=== PATIENT | male | born 1950 | race Caucasian/White ===

== ENCOUNTER 2020-07-10 11:51 | Outpatient (CLI) | payer MEDICARE, SELFPAY ==
--- NOTE | ~2020-07-10 | XR_ITS ---
XR chest 2V DATE: 07/10/2020 12:16 INDICATION: Shortness of breath for 3 months. Cough. History of emphysema. Partial left lung removal. TECHNIQUE: 2 views COMPARISON: 08/21/2013 two-view chest FINDINGS: There are surgical clips overlying the left upper chest and resection of the left sixth rib , consistent with history of left partial lung removal. There is an approximately 6 cm mass in the left upper lung field, likely carcinoma. Left apical cappi ng. The right lung is clear. No pleural effusion or pulmonary vascular congestion or pneumothorax is evid ent. Normal heart size. Diffuse osteopenia. IMPRESSION: Approximately 6 cm mass of the left upper lung, likely due to lung carcinoma Status post partial left lung resection Dr. Abarca telephoned the report to on 07/10/2020 at 1225 hours. Reviewed, dictated and finalized at location B.
== END 2020-07-10 11:52 | disposition home or self-care (01) ==
LOC: CHSIMG 11:56
PROVIDERS: PCP Physician Assistant; Visit Provider Physician Assistant
DX: J43.9 Emphysema, unspecified (principal); I10 Essential (primary) hypertension
CPT/HCPCS: 71046

== ENCOUNTER 2020-07-13 09:09 | Outpatient (CLI) | payer MEDICARE, SELFPAY ==
--- NOTE | ~2020-07-13 | CT_ITS ---
EXAMINATION: CT chest w con DATE: 07/13/2020 10:00 INDICATION: Shortness of breath, history of left partial pneumonectomy, lung mass on recent chest rad iograph TECHNIQUE: Transaxial computed tomographic images of the chest were obtained after the administration of 75 cc of Omnipaque 350 intravenous contrast. The dose-length product (DLP) was 360.69 mGy-cm. Ite rative reconstruction was used. COMPARISON: None FINDINGS: There is a 10.6 x 7.8 cm paramediastinal mass of the left upper lobe which infiltrates into the prevascular space and left upper mediastinum. A portion of the mass abuts, and possibly invades, the upper esophagus. There is a 2.6 x 1.1 cm left supraclavicular lymph node. There is a 3 mm nodule of the right middle lobe on image 82. There are surgical changes of prior left partial pneumonectomy . No pleural effusion or pneumothorax is identified. The heart size is normal. There are bilateral th yroid nodules which measure up to 1.9 cm on the left. There is mild thoracic spondylosis. The gallbla dder is surgically absent. There is a 2.8 cm mass of the right adrenal gland containing macroscopic f at. A 2 cm cyst is present in the upper pole of the left kidney. IMPRESSION: 1. Left upper lobe mass, consistent with primary bronchogenic carcinoma. 2. Possible invasion of the upper esophagus by the mass. 3. Pathologically enlarged left supraclavicular lymph node. 4. Right adrenal mass containing macroscopic fat. Finding may reflect a myelolipoma however would rec ommend comparison with any prior imaging as metastatic disease is a possibility. Reviewed, dictated and finalized at location A. IMPRESSION: 1. Left upper lobe mass, consistent with primary bronchogenic carcinoma. 2. Possible invasion of the upper esophagus by the mass. 3. Pathologically enlarged left supraclavicular lymph node. 4. Right adrenal mass containing macroscopic fat. Finding may reflect a myeloli massiel however would recommend comparison with any prior imaging as metastatic di santy is a possibility.
[2020-07-13 09:32] LABS: Estimated Glomerular Filt Rate > 60
== END 2020-07-13 09:10 | disposition home or self-care (01) ==
LOC: CHSIMG 09:11
PROVIDERS: PCP Physician Assistant; Visit Provider Physician Assistant
DX: R91.8 Other nonspecific abnormal finding of lung field (principal)
CPT/HCPCS: 71260; Q9965

== ENCOUNTER 2020-07-27 10:19 | Outpatient (CLI) | payer MEDICARE, SELFPAY ==
[2020-07-27 10:30] LABS: Hematocrit 45.1 % (37.0-46.0); Hemoglobin 14.8 g/dL (12.4-15.3); Mean Corpuscular HGB Conc 32.8 g/dL (32.0-36.0); Mean Corpuscular Hemoglobin 30.5 pg (27.0-31.0); Mean Platelet Volume 9.2 fl (8.7-11.0); Platelet Count Result 288 K/mm3 (150-420); Red Blood Count 4.85 M/mm3 (4.70-6.10); Red Cell Distribution Width 12.9 % (11.6-14.4); White Blood Count 9.4 K/mm3 (4.8-10.8)
[2020-07-27 10:44] LABS: Partial Thromboplastin Time 28.2 SEC (22.3-31.6); Prothrombin Time 10.4 Seconds (9.64-11.0)
== END 2020-07-27 10:20 | disposition home or self-care (01) ==
LOC: CHSLAB 10:22
PROVIDERS: PCP Physician Assistant
DX: R91.8 Other nonspecific abnormal finding of lung field (principal); Z79.01 Long term (current) use of anticoagulants
CPT/HCPCS: 36415; 85027; 85610; 85730

== ENCOUNTER 2023-01-07 03:41 | Inpatient (IN) | payer MEDICARE, SELFPAY ==
[2023-01-07] VITALS (32 sets, daily range): BP systolic 117–166; BP diastolic 75–95; PULSE 91–127; RESP 15–38; TEMP 36.4–37.2; O2SAT 89–98; BMI 26.8
--- NOTE | ~2023-01-07 | CT_ITS ---
EXAMINATION: CTA chest PE protocol DATE: 01/07/2023 05:10 INDICATION: Shortness of breath. TECHNIQUE: Computed tomography angiography (CTA) of the chest was performed with 100 mL Omnipaque-350 intravenous contrast timed to evaluate the pulmonary arteries. Coronal maximum intensity projection 3D-reconstructions were created by the technologist. Automated exposure control and iterative reconst ruction technique were employed. The dose-length product was 578.57 mGy-cm. COMPARISON: Chest CT 07/13/2020 FINDINGS: There is mild emphysema. There is a 5 mm nodule in right lower lobe. There are changes of l eft upper lobectomy. There are airspace opacities with volume loss in left upper lung zone. There is elevation of left hemidiaphragm. There are tree-in-bud opacities, interstitial opacities, and subpleu ral bands in left lung with a lower lung predominance. There is a small left pleural effusion. The he art size is normal. There are coronary artery calcifications. There is a small pericardial effusion. There is no pulmonary embolus. There are changes of cholecystectomy. There are 6 mm and 7 mm hyperenh ancing masses in right hepatic lobe. There is a 3.0 cm mass in right adrenal gland containing fat, co nsistent with a myelolipoma. There is a 2.2 cm cyst in left kidney. There are nodules in the thyroid measuring up to 2.3 cm, stable from 07/13/2020. There are bridging endplate osteophytes at multiple le vels in the spine, consistent with diffuse idiopathic skeletal hyperostosis (DISH). IMPRESSION: 1. No pulmonary embolus. 2. Airspace opacities with volume loss in left upper lung zone, consistent with malignancy and radiat ion fibrosis. 3. Left upper lobectomy. 4. Mild pneumonia in left lung. 5. 5 mm right lower lobe pulmonary nodule, new from 07/13/2020, which may be infection or less likely metastatic disease. 6. Small left pleural effusion. 7. Mild emphysema. 8. Small pericardial effusion. 9. Two hyperenhancing liver masses measuring up to 7 mm, probably benign lesions such as hemangiomas or focal nodular hyperplasia. Reviewed, dictated and finalized at location A. IMPRESSION: 1. No pulmonary embolus. 2. Airspace opacities with volume loss in left upper lung zone, consistent with malignancy and radiation fibrosis. 3. Left upper lobectomy. 4. Mild pneumonia in left lung. 5. 5 mm right lower lobe pulmonary nodule, new from 07/13/2020, which may be inf ection or less likely metastatic disease. 6. Small left pleural effusion. 7. Mild emphysema. 8. Small pericardial effusion. 9. Two hyperenhancing liver masses measuring up to 7 mm, probably benign lesion s such as hemangiomas or focal nodular hyperplasia.
--- NOTE | ~2023-01-07 | XR_ITS ---
EXAMINATION: XR chest 1V portable DATE: 01/07/2023 04:07 INDICATION: Shortness of breath. TECHNIQUE: A single frontal view of the chest was obtained on 2 radiographs. COMPARISON: Chest 2 views 07/10/2020, chest CT 01/07/2023 FINDINGS: There is volume loss of left hemithorax. There are surgical clips at left hilum from left u pper lobectomy. There are airspace opacities in left upper lung zone. There is elevation of left ni diaphragm. No pleural effusion or pneumothorax. The heart size is normal. IMPRESSION: 1. Airspace opacities in left upper lung zone, consistent with malignancy and changes of radiation th erapy. 2. Left upper lobectomy. Reviewed, dictated and finalized at location A. IMPRESSION: 1. Airspace opacities in left upper lung zone, consistent with malignancy and c hanges of radiation therapy. 2. Left upper lobectomy.
--- NOTE | 2023-01-07 03:55 | ECG_ITS ---
Measurements Intervals [place] Rate: 111 P: 93 [place]: 188 QRS: 25 QRSD: 81 T: 73 QT: 294 QTc: 400 Interpretive Statements SINUS TACHYCARDIA LOW QRS VOLTAGE IN PRECORDIAL LEADS NONSPECIFIC T-WAVE ABNORMALITY ABNORMAL RHYTHM ECG NO PREVIOUS ECG AVAILABLE FOR COMPARISON Electronically Signed On 01-07-2023 10:22:02 CDT by Chad Sandra M.D.
[2023-01-07] MEDS: methylPREDNISolone SOD SUCC 125 MG VIAL IV PUSH (04:07)
[2023-01-07 04:20] LABS: Hematocrit 42.4 % (37.0-46.0); Hemoglobin 14.1 g/dL (12.4-15.3); Mean Corpuscular HGB Conc 33.3 g/dL (32.0-36.0); Mean Corpuscular Hemoglobin 30.7 pg (27.0-31.0); Mean Corpuscular Volume 92.4 fL (78.0-102.0); Mean Platelet Volume 9.2 fl (8.7-11.0); Platelet Count Result 237 K/mm3 (150-420); Red Blood Count 4.59 M/mm3 (4.70-6.10); Red Cell Distribution Width 13.6 % (11.6-14.4); White Blood Count 7.7 K/mm3 (4.8-10.8)
[2023-01-07] MEDS: LEVALBUTEROL NEB 1.25 MG/3 ML INHALATION (04:22)
[2023-01-07] MEDS: IPRATROPIUM BR 0.02% INH SOLN 0.5 MG/2.5 ML VIAL INHALATION (04:22)
[2023-01-07 04:35] LABS: Base Excess ABG 2.3 mmol/L (0-2); HCO3 ABG 28.3 mmol/L (23-29); Oxygen Saturation ABG 93.4 % (95-97); Oxyhemoglobin 92.4 % (94-100); PCO2 ABG 49.2 mmHg (35-45); PO2 ABG 68.3 mmHg (75-85); Total Hemoglobin 14.6 g/dL (12.0-18.0); pH ABG 7.38 (7.35-7.45)
[2023-01-07 04:39] LABS: D Dimer 0.74 mg/L (0.19-0.50)
[2023-01-07 04:39] LABS: Device NASAL CANNULA; Modified Allen's Test Pass; Site Drawn RIGHT RADIAL
[2023-01-07 04:42] LABS: Anion Gap 6 mmol/L (8-16); Blood Urea Nitrogen 10 mg/dL (7-18); Calcium 9.3 mg/dL (8.5-10.1); Carbon Dioxide 32 mmol/L (21-32); Chloride 108 mmol/L (98-108); Estimated CRCL calculation 92 ml/min; Estimated Glomerular Filt Rate > 60; Glucose 120 mg/dL (70-99); NT Pro B Type Natriuretic Pept 147 pg/mL (0-125); Osmolality Calculated 302 mOsm/kg (285-295); Potassium 3.7 mmol/L (3.5-5.1); Sodium 146 mmol/L (136-145); Troponin I 19.5 ng/L (0.00-60.4)
[2023-01-07 04:45] LABS: Band Neutrophils Percent 0 % (0-6); Basophils Percent Manual 0 % (0-1); Eosinophils Percent Manual 0 % (1-6); Lymphocytes Absolute Manual 0.77 K/mm3 (1.1-4.5); Lymphocytes Percent Manual 10 % (18-44); Monocytes Absolute Manual 1.77 K/mm3 (0.1-0.90); Monocytes Percent Manual 23 % (3-9); Neutrophils Absolute Manual 5.15 K/mm3 (1.3-6.7); Neutrophils Percent Manual 67 % (46-73); Platelet Estimate Adequate (Adequate)
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
[2023-01-07] MEDS: IPRATROPIUM 0.5 MG/ALBUTEROL SULFATE 2.5 MG AMPUL.NEB 3 ML INHALATION ×4 (09:03→23:30)
[2023-01-07] MEDS: ACETAMINOPHEN 500 MG TABLET 1000 MG PO (09:26)
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
--- NOTE | 2023-01-07 11:04 | ADMGEN ---
This patient, Garcia Irwin, was admitted to 2nd Floor Room 209-1. Patient/family oriented to hospital policies and general routines including ID bracelet, bed and alarms, visiting hours, pain management, procedures, bathroom and other care routines, personal items, smoking policy, room service/diet, and visiting hours. Information on how to activate the Rapid Response Team has been discussed. Patient/Family are encouraged to report perceived risks to care and to ask questions if they do not understand what they are told or what they should do.
[2023-01-07] MEDS: IRBESARTAN 150 MG TABLET PO (15:02)
[2023-01-07] MEDS: amLODIPine BESYLATE 5 MG TABLET PO (15:03)
[2023-01-07] MEDS: PANTOPRAZOLE 40 MG TABLET PO (15:03)
[2023-01-07] MEDS: EZETIMIBE 10 MG TABLET PO (15:03)
[2023-01-07] MEDS: ENOXAPARIN 40 MG/0.4 ML SYRINGE SUB-Q (15:03)
[2023-01-07] MEDS: ACETAMINOPHEN 325 MG TABLET 650 MG PO (16:22)
[2023-01-07] MEDS: ARFORMOTEROL TARTRATE 15 MCG/2 ML NEB INHALATION (18:41)
[2023-01-07] MEDS: BUDESONIDE RESPULE NEB 0.5 MG/2 ML AMP INHALATION (18:41)
[2023-01-07] MEDS: traMADol HCL (*CRX) 50 MG TABLET 100 MG PO (21:07)
[2023-01-08] VITALS (18 sets, daily range): BP systolic 111–138; BP diastolic 60–78; PULSE 83–125; RESP 16–95; TEMP 36.8–38.1; O2SAT 88–95
[2023-01-08 05:16] LABS: Basophils Absolute Auto 0.02 K/mm3 (0.00-0.10); Basophils Percent Auto 0.2 % (0.0-1.0); Hematocrit 37.6 % (37.0-46.0); Hemoglobin 12.4 g/dL (12.4-15.3); Immature Granulocyte Absolute 0.09 K/mm3 (0.00-0.00); Immature Granulocyte Percent A 0.7 % (0.0-0.0); Lymphocytes Absolute Auto 0.46 K/mm3 (1.10-4.50); Lymphocytes Percent Auto 3.5 % (18.0-42.0); Mean Corpuscular Hemoglobin 30.2 pg (27.0-31.0); Mean Corpuscular Volume 91.7 fL (78.0-102.0); Mean Platelet Volume 9.3 fl (8.7-11.0); Monocytes Absolute Auto 1.83 K/mm3 (0.10-0.90); Monocytes Percent Auto 13.7 % (2.0-11.0); Neutrophils Absolute Auto 10.9 K/mm3 (1.7-7.2); Neutrophils Percent Auto 81.9 % (50.0-70.0); Platelet Count Result 238 K/mm3 (150-420); Red Cell Distribution Width 13.8 % (11.6-14.4); White Blood Count 13.3 K/mm3 (4.8-10.8)
[2023-01-08 05:25] LABS: Anion Gap 5 mmol/L (8-16); Blood Urea Nitrogen 13 mg/dL (7-18); Carbon Dioxide 34 mmol/L (21-32); Chloride 107 mmol/L (98-108); Estimated CRCL calculation 91 ml/min; Estimated Glomerular Filt Rate > 60; Glucose 110 mg/dL (70-99); Osmolality Calculated 303 mOsm/kg (285-295); Potassium 3.7 mmol/L (3.5-5.1); Sodium 146 mmol/L (136-145)
[2023-01-08] MEDS: BUDESONIDE RESPULE NEB 0.5 MG/2 ML AMP INHALATION ×2 (06:40→18:42)
[2023-01-08] MEDS: IPRATROPIUM 0.5 MG/ALBUTEROL SULFATE 2.5 MG AMPUL.NEB 3 ML INHALATION ×4 (06:40→23:42)
[2023-01-08] MEDS: ARFORMOTEROL TARTRATE 15 MCG/2 ML NEB INHALATION (06:41)
[2023-01-08] MEDS: ENOXAPARIN 40 MG/0.4 ML SYRINGE SUB-Q (08:35)
[2023-01-08] MEDS: AZITHROMYCIN 250 MG TABLET 500 MG PO (08:37)
[2023-01-08] MEDS: EZETIMIBE 10 MG TABLET PO (08:37)
[2023-01-08] MEDS: PANTOPRAZOLE 40 MG TABLET PO (08:37)
[2023-01-08] MEDS: amLODIPine BESYLATE 5 MG TABLET PO (08:38)
[2023-01-08] MEDS: IRBESARTAN 150 MG TABLET PO (08:38)
[2023-01-08] MEDS: cefTRIAXone 2 GM/NS 100 ML 2 GM/100 ML BAG IVPB (08:43)
--- NOTE | 2023-01-08 08:50 | WPDPN ---
Progress Note: A&P Assessment and Plan (1) Community acquired pneumonia: Qualifiers: Laterality: left Lung location: upper lobe of lung Qualified Code(s): J18.9 - Pneumonia, unspecified organism Code(s): J18.9 - Pneumonia, unspecified organism Status: Acute Assessment and Plan: Rocephin 2 g IV Q 24 azithromycin 500 mg p.o. Q 24 x5 days DuoNebs q.6 hours continue patient's home oxygen at 4 L per nasal cannula and titrate as needed Monitor vital signs Monitor lab work Monitor clinical response elevated wbc's will trend possibly secondary to steroid will keep for now additional day to monitor. (2) Acute exacerbation of chronic obstructive airways disease: Code(s): J44.1 - Chronic obstructive pulmonary disease with (acute) exacerbation Status: Acute Assessment and Plan: DuoNebs q.6 hours Continue Symbicort Monitor pulse ox Monitor clinical response (3) Hypercholesterolemia: Code(s): E78.00 - Pure hypercholesterolemia, unspecified Status: Acute Assessment and Plan: continue Zetia (4) HTN (hypertension): Code(s): I10 - Essential (primary) hypertension Status: Acute Assessment and Plan: monitor vital signs Continue Cardizem (5) GERD (gastroesophageal reflux disease): Code(s): K21.9 - Gastro-esophageal reflux disease without esophagitis Status: Acute Assessment and Plan: continue omeprazole Subjective Date/time seen: 01/08/23 08:50 Interval history: patient does not appear to be in any distress . Patient notes that his pain is controlled he was able to tolerate his meals and slept well overnight. Will keep patient for an additional day to ensure that his white count trend hours to indicate that his pneumonia is improving. The patient denies CP, palpitation, extremity numbness, lightheadedness, dizziness, constipation, diarrhea, chills, or fever. Review of Systems Review of Systems: All systems reviewed & are unremarkable except as noted in HPI and below Exam Narrative: GENERAL: This is a well-nourished, well-developed patient, in no apparent distress. HEAD: normocephalic, atraumatic. EYES: PERRL. Sclera clear/white. Vision is grossly intact. EARS: External ears normal, auditory canals clear and without drainage, TMs normal without perforation. Hearing grossly intact. NOSE: External nose normal with no obvious nasal discharge, nares without redness, no rhinorrhea. THROAT: Mucous membranes moist, posterior pharynx clear. NECK: Neck supple, non-tender without lymphadenopathy, masses or thyromegaly. CARDIOVASCULAR: Regular rate and rhythm without murmurs, gallops, or rubs. RESPIRATORY: Diminished throughout GASTROINTESTINAL: Abdomen soft, non-tender, nondistended. Bowel sounds are active. No hepato-splenomegaly, or palpable masses. No guarding. SKIN: warm, intact with no suspicious lesions or rash, good texture and turgor. NEURO: awake, alert, and oriented to person, place and time. There were no obvious focal neurologic abnormalities. EXTREMITIES: Normal range of motion. No edema. No calf tenderness. Objective Data Vital Signs Vital Signs: Vital Signs - 24 hr 01/07/23 09:04 01/07/23 09:14 01/07/23 09:38 Temperature 37.2 C Pulse Rate 111 H 105 H 108 H Respiratory Rate 24 H 24 H 26 H Blood Pressure 140/90 Pulse Oximetry 93 94 Oxygen Delivery Nasal Cannula Oxygen Flow Rate 5 4.5 01/07/23 10:40 01/07/23 12:54 01/07/23 12:59 Temperature 36.6 C Pulse Rate 104 H 103 H 107 H Respiratory Rate 20 24 H 24 H Blood Pressure 150/88 H Pulse Oximetry 96 93 Oxygen Delivery Oxygen Flow Rate 4 4.5 01/07/23 12:00 01/07/23 12:56 01/07/23 16:00 Temperature 36.8 C Pulse Rate 100 105 H Respiratory Rate 17 Blood Pressure 133/89 Pulse Oximetry 96 94 Oxygen Delivery Nasal Cannula Nasal Cannula Oxygen Flow Rate 4 4 01/07/23 16:00 01/07/23 18:42 01/07/23 20:00
[2023-01-08] MEDS: TAMSULOSIN HCL 0.4 MG CAPSULE PO (09:56)
[2023-01-08] MEDS: ACETAMINOPHEN 325 MG TABLET 650 MG PO ×2 (09:58→16:56)
[2023-01-08] MEDS: methylPREDNISolone SOD SUCC 40 MG VIAL IV PUSH (17:03)
[2023-01-08] MEDS: traZODone HCL 50 MG TABLET PO (20:39)
[2023-01-08] MEDS: traMADol HCL (*CRX) 50 MG TABLET 100 MG PO (20:39)
[2023-01-09] VITALS (9 sets, daily range): BP systolic 101–126; BP diastolic 64–72; PULSE 80–114; RESP 14–20; TEMP 36.4–37; O2SAT 90–96
[2023-01-09 05:02] LABS: Hematocrit 38.4 % (37.0-46.0); Hemoglobin 12.5 g/dL (12.4-15.3); Immature Granulocyte Absolute 0.04 K/mm3 (0.00-0.00); Immature Granulocyte Percent A 0.4 % (0.0-0.0); Lymphocytes Percent Auto 3.3 % (18.0-42.0); Mean Corpuscular HGB Conc 32.6 g/dL (32.0-36.0); Mean Corpuscular Volume 92.1 fL (78.0-102.0); Mean Platelet Volume 9.1 fl (8.7-11.0); Monocytes Percent Auto 5.6 % (2.0-11.0); Neutrophils Absolute Auto 8.1 K/mm3 (1.7-7.2); Neutrophils Percent Auto 90.7 % (50.0-70.0); Platelet Count Result 222 K/mm3 (150-420); Red Blood Count 4.17 M/mm3 (4.70-6.10); Red Cell Distribution Width 13.7 % (11.6-14.4)
[2023-01-09] MEDS: BUDESONIDE RESPULE NEB 0.5 MG/2 ML AMP INHALATION (05:08)
[2023-01-09] MEDS: IPRATROPIUM 0.5 MG/ALBUTEROL SULFATE 2.5 MG AMPUL.NEB 3 ML INHALATION ×2 (05:09→12:06)
[2023-01-09 05:13] LABS: Anion Gap 5 mmol/L (8-16); Blood Urea Nitrogen 15 mg/dL (7-18); Calcium 9.1 mg/dL (8.5-10.1); Carbon Dioxide 34 mmol/L (21-32); Chloride 105 mmol/L (98-108); Estimated CRCL calculation 94 ml/min; Estimated Glomerular Filt Rate > 60; Glucose 142 mg/dL (70-99); Osmolality Calculated 300 mOsm/kg (285-295); Potassium 4.1 mmol/L (3.5-5.1); Sodium 144 mmol/L (136-145)
[2023-01-09] MEDS: cefTRIAXone 2 GM/NS 100 ML 2 GM/100 ML BAG IVPB (09:03)
[2023-01-09] MEDS: AZITHROMYCIN 250 MG TABLET 500 MG PO (09:12)
[2023-01-09] MEDS: methylPREDNISolone SOD SUCC 40 MG VIAL IV PUSH (09:12)
[2023-01-09] MEDS: amLODIPine BESYLATE 5 MG TABLET PO (09:12)
[2023-01-09] MEDS: PANTOPRAZOLE 40 MG TABLET PO (09:12)
[2023-01-09] MEDS: EZETIMIBE 10 MG TABLET PO (09:13)
[2023-01-09] MEDS: IRBESARTAN 150 MG TABLET PO (09:13)
[2023-01-09] MEDS: TAMSULOSIN HCL 0.4 MG CAPSULE PO (09:14)
[2023-01-09] MEDS: ENOXAPARIN 40 MG/0.4 ML SYRINGE SUB-Q (09:14)
--- NOTE | 2023-01-09 12:35 | PM.DS ---
DS: Admitting Diagnosis Discharge Date 01/09/2023 Admitting Diagnosis Pneumonia Exacerbation of COPD DS: Discharge Diagnosis Discharge Diagnosis (1) Community acquired pneumonia: Qualifiers: Laterality: left Lung location: upper lobe of lung Qualified Code(s): J18.9 - Pneumonia, unspecified organism Code(s): J18.9 - Pneumonia, unspecified organism Status: Acute Assessment and Plan: patient received 2 days of IV Rocephin 2 g and azithromycin 500 mg p.o.. Will discharge patient on Augmentin 875 b.i.d. x8 days to finish the course continue patient's home oxygen at 4 L per nasal cannula and titrate as needed Monitor vital signs Monitor lab work Monitor clinical response (2) Acute exacerbation of chronic obstructive airways disease: Code(s): J44.1 - Chronic obstructive pulmonary disease with (acute) exacerbation Status: Acute Assessment and Plan: Continue Symbicort Monitor pulse ox Discharged with prednisone taper (3) Hypercholesterolemia: Code(s): E78.00 - Pure hypercholesterolemia, unspecified Status: Acute Assessment and Plan: continue Zetia (4) HTN (hypertension): Code(s): I10 - Essential (primary) hypertension Status: Acute Assessment and Plan: monitor vital signs continue amlodipine Continue irbesartan (5) GERD (gastroesophageal reflux disease): Code(s): K21.9 - Gastro-esophageal reflux disease without esophagitis Status: Acute Assessment and Plan: continue omeprazole DS: Summary Hospital Course Reason for hospitalization: pneumonia Exacerbation of COPD Hospital Course: admitted on 01/07/2023 with pneumonia and exacerbation of COPD. patient has continued to improve and he denies any shortness breath and we minimal coughing. States he is back at his baseline and is ready to go home. Patient ambulated in the room with nursing staff with no drop in oxygen saturation or increase in heart rate. Status at Discharge Cognitive/behavioral status at discharge: Patient is alert and oriented x4 and appears in no acute distress. Pleasant affect noted. Functional status at discharge: independent ambulation Overall status at discharge: patient is back to baseline Time Spent with Patient Time attestation: Total time spent providing and/or coordinating discharge services: Less than 30 minutes Exam Narrative: Patient is resting in low Herzog's position with friend at bedside. Alert and oriented x4. Appears in no acute distress. patient states he is feeling like his back at his baseline and is ready to go. Has no concerns for returning. States his friend is going to stay with him for the next several days to make sure he does not have any issues. Const: General: comfortable and no acute distress HENMT: Face/Nose/Sinus: Normal nares present Mouth: Yes moist mucous membranes Eyes: General: appearance normal, both eyes and all related structures Neck: Neck: supple and no JVD Resp: Effort & Inspection: normal respiratory effort Auscultation: rhonchi left upper and left lower Other: Patient appears in no acute respiratory distress. Able to speak in complete sentences without difficulty. No use of accessory muscles appreciated. Lung sounds are clear and equal bilaterally. Cardio: Rate: regular rate Rhythm: regular rhythm Other: S1-S2 audible without any murmur, rub, gallop appreciated GI: Other: abdomen soft, nondistended, nontender to palpation with bowel sounds present x4 quadrants : General: Yes bladder normal to palpation Skin: General skin exam: normal color and no rashes or lesions noted Neuro: Speech: normal speech Motor exam (neuro): Normal motor muscle tone present throughout Sensory Exam: normal sensation Extrem: General: normal to inspection Other: bilateral pedal and posterior tibial pulses palpated and equal without any edema noted Psych: Mental Status:
--- NOTE | 2023-01-09 14:16 | PC.NURSE ---
Pt discharged to self care. IV's removed and dressings applied. Medication instruction given . medications purpose, SE, times and dosages. Pt verbalized understanding. Pt's friend will take him home and help him get his O2 set up. Follow up MD appointment.
--- NOTE | 2023-01-10 16:08 | PC.NURSE ---
Discharge call back --- Patient states he is doing fine and that his discharge instructions were explained to him.
--- NOTE | 2023-01-10 16:13 | PC.NURSE ---
Discharge call back--- Patient states nurse did good job at explainig discharge instructions and patient has no concerns.
== END 2023-01-09 13:40 | disposition home or self-care (01) | DRG 190 ==
LOC: CHSED 08:38 → CHS2ND 01-08 15:51
PROVIDERS: Family Medicine; Nurse Practitioner Family; Admitting Provider Internal Medicine; Emergency Provider Emergency Medicine; PCP Physician Assistant; Visit Provider Internal Medicine
DX: J44.0 Chronic obstructive pulmonary disease with (acute) lower respiratory infection; J18.9 Pneumonia, unspecified organism; J44.1 Chronic obstructive pulmonary disease with (acute) exacerbation; I10 Essential (primary) hypertension; E78.00 Pure hypercholesterolemia, unspecified; K21.9 Gastro-esophageal reflux disease without esophagitis; Z99.81 Dependence on supplemental oxygen; Z85.118 Personal history of other malignant neoplasm of bronchus and lung; Z90.2 Acquired absence of lung [part of]
CPT/HCPCS: 36415; 36600; 71045; 71275; 80048; 82805; 83880; 84484; 85025; 85380; 93005; 94640; 96365; 96367; 96375; 99285; A9270; J0456; J0696; J1650; J2920; J2930; Q9967

== ENCOUNTER 2023-03-30 11:00 | Outpatient (RCR) | payer MEDICARE, SELFPAY | END 2023-03-30 13:24 | disposition home or self-care (01) | PROVIDERS: PCP Physician Assistant | DX: C34.90 Malignant neoplasm of unspecified part of unspecified bronchus or lung (principal); J44.9 Chronic obstructive pulmonary disease, unspecified; J96.10 Chronic respiratory failure, unspecified whether with hypoxia or hypercapnia | CPT/HCPCS: 93798; 94625 ==